=== PATIENT | female | born 1970 | race Caucasian/White ===

== ENCOUNTER 2020-08-13 11:53 | Emergency (ER) | payer BC ==
[2020-08-13] MEDS ORDERED: Aspirin 81 MG Tab.Chew PO ONE (12:01)
[2020-08-13] MEDS ORDERED: Sodium Chloride 0.9% 10 ML Syringe FLUSH PRN (12:06)
--- NOTE | 2020-08-13 12:49 | EDM.PDOC ---
ED HPI GENERAL MEDICAL PROBLEM - General Stated Complaint: CHEST PAIN Time Seen by Provider: 08/13/20 12:07 Source of Information: Reports: Patient, Significant Other History Limitations: Reports: No Limitations - History of Present Illness INITIAL COMMENTS - FREE TEXT/NARRATIVE: Patient presents with pain in left upper chest to clavicle. It is better the last 30 minutes but started at 1030 this morning. She also had some pain up to her neck and in left arm but that is gone now. She says she has had these, or similar, waxing and waning symptoms for the last 3 weeks, since a week after her Covid vaccine on 07/13/20. The pain has never completely gone away. Ten days ago it was really bad for 3-4 hours and she thought she might pass out. Today is the second time it has gotten bad but not quite as bad as before, at 5-6/10. She rates it 2/10 currently. Today she also checked her blood pressure and saw it was low at 101/?. Chest Pain Score (Numeric/FACES): 4 - Related Data Allergies Allergy/AdvReac Type Severity Reaction Status Date / Time hydrocodone Allergy Anaphylactic Verified 08/13/20 12:24 Shock Home Meds: Home Meds . [No Known Home Meds] 08/13/20 [History] ED ROS GENERAL - Review of Systems Review Of Systems: See Below Constitutional: Reports: Malaise. Denies: Fever, Chills, Weakness HEENT: Reports: Throat Pain (sometimes feels like indigestion). Denies: Ear Pain, Vision Change Respiratory: Denies: Shortness of Breath, Cough Cardiovascular: Reports: Chest Pain. Denies: Lightheadedness, Syncope GI/Abdominal: Denies: Abdominal Pain, Diarrhea, Nausea, Vomiting : Denies: Dysuria, Flank Pain Musculoskeletal: Reports: Neck Pain (some but not now), Shoulder Pain, Arm Pain (not now). Denies: Back Pain Skin: Reports: Diaphoresis (briefly this morning). Denies: Cyanosis, Jaundice, Mottled, Pallor Neurological: Denies: Confusion, Dizziness, Headache, Seizure, Syncope, Trouble Speaking, Difficulty Walking Psychiatric: Denies: Agitation, Confusion ED EXAM, GENERAL - Physical Exam Exam: See Below Exam Limited By: No Limitations General Appearance: Alert, WD/WN, No Apparent Distress Eye Exam: Bilateral Eye: EOMI, Normal Inspection, PERRL Ears: Normal External Exam, Hearing Grossly Normal Nose: Normal Inspection, No Blood Throat/Mouth: Normal Lips, Normal Voice, No Airway Compromise Head: Atraumatic, Normocephalic Neck: Normal Inspection, Supple, Full Range of Motion, Other (tender to palpation in a very small discreet area just above the medial left clavicle). No: Lymphadenopathy (L), Lymphadenopathy (R) Respiratory/Chest: No Respiratory Distress, Lungs Clear, Normal Breath Sounds, No Accessory Muscle Use, Other (Palpation just below the medial left clavicle is tender and reproduces some of the pain she has been having for 3 weeks.) Cardiovascular: Normal Peripheral Pulses, Regular Rate, Rhythm, No Edema, No Gallop, No JVD, No Murmur GI/Abdominal: Soft, No Distention Back Exam: Normal Inspection, Full Range of Motion Extremities: Normal Inspection, Normal Range of Motion. No: Pedal Edema, Bob's Sign, Leg Pain (non-tender to palpation, no swelling of calves) Neurological: Alert, Oriented, Normal Cognition, No Motor/Sensory Deficits Psychiatric: Normal Affect, Normal Mood Skin Exam: Warm, Dry, Intact, Normal Color, No Rash Course - Vital Signs Last Recorded V/S: Last Vital Signs Temp 98.0 F 08/13/20 12:10 Pulse 58 L 08/13/20 17:30 Resp 14 08/13/20 17:30 BP 100/66 08/13/20 17:30 Pulse Ox 98 08/13/20 17:30 - Orders/Labs/Meds Orders: Active Orders 24 hr Category Date Time Status EKG Documentation Completion [RC] ASDIRECTED Care 08/13/20 12:02 Active Peripheral IV Care [RC] . DIRECTED Care 08/13/20 12:07 Active Sodium Chloride 0.9% [Saline Flush] Med 08/13/20 12:06 Active 10 ml FLUSH Q8HR PRN Peripheral IV Insertion Adult [OM.PC] Routine Oth 08/13/20 12:06 Ordered EKG 12 Lead [EK] Stat Ther 08/13/20 12:01 Ordered Medication Orders Sodium Chloride (Sodium Chloride 0.9% 10 Ml Syringe) 10 ml FLUSH Q8HR PRN PRN Reason: keep vein open Labs: Laboratory Tests 04/09/2808/13/20 08/13/20 Range/Units 12:50 12:50 16:18 WBC 5.31 (5.00-10.00) 10^3/uL RBC 4.75 (3.80-5.50) 10^6/uL Hgb 13.8 (12.0-16.0) g/dL Hct 41.8 (37.0-47.0) % MCV 88.0 (82.0-92.0) fL MCH 29.1 (27.0-31.0) pg MCHC 33.0 (32.0-36.0) g/dL RDW 13.9 (11.5-14.5) % Plt Count 259 (150-400) 10^3/uL MPV 9.6 (7.4-10.4) fL Immature Gran % (Auto) 0.2 (0.0-5.0) % Neut % (Auto) 65.5 (50.0-70.0) % Lymph % (Auto) 24.5 (20.0-40.0) % [place] % (Auto) 6.4 (2.0-8.0) % Eos % (Auto) 3.0 (1.0-3.0) % Baso % (Auto) 0.4 (0.0-1.0) % Neut # (Auto) 3.48 (2.50-7.00) 10^3/uL Lymph # (Auto) 1.30 (1.00-4.00) 10^3/uL [place] # (Auto) 0.34 (0.10-0.80) 10^3/uL Eos # (Auto) 0.16 (0.10-0.30) 10^3/uL Baso # (Auto) 0.02 (0.00-0.10) 10^3/uL Immature Gran # (Auto) 0.01 (0.00-0.50) 10^3/uL D-Dimer, Quantitative < 100 (<400) ng/mL Sodium 144 (136-145) mmol/L Potassium 3.8 (3.5-5.1) mmol/L Chloride 106 (98-107) mmol/L Carbon Dioxide 26.1 (21.0-32.0) mmol/L Anion Gap 15.7 H (5-15) mmol/L BUN 18 (7-18) mg/dL Creatinine 0.76 (0.51-1.17) mg/dL Est Cr Clr Drug Dosing 79.02 mL/min Estimated GFR (MDRD) > 60 mL/min Glucose 92 (70-140) mg/dL Calcium 8.9 (8.7-10.3) mg/dL Total Bilirubin 0.5 (0.2-1.0) mg/dL AST 13 L (15-37) U/L ALT 19 (14-63) U/L Alkaline Phosphatase 60 (46-116) U/L POC Troponin I (0.00-0.08) ng/mL Troponin I < 0.017 (0.000-0.056) ng/mL Total Protein 7.2 (6.4-8.2) g/dL Albumin 3.93 (3.40-5.00) g/dL 08/13/20 Range/Units 16:18 WBC (5.00-10.00) 10^3/uL RBC (3.80-5.50) 10^6/uL Hgb (12.0-16.0) g/dL Hct (37.0-47.0) % MCV (82.0-92.0) fL MCH (27.0-31.0) pg MCHC (32.0-36.0) g/dL RDW (11.5-14.5) % Plt Count (150-400) 10^3/uL MPV (7.4-10.4) fL Immature Gran % (Auto) (0.0-5.0) % Neut % (Auto) (50.0-70.0) % Lymph % (Auto) (20.0-40.0) % [place] % (Auto) (2.0-8.0) % Eos % (Auto) (1.0-3.0) % Baso % (Auto) (0.0-1.0) % Neut # (Auto) (2.50-7.00) 10^3/uL Lymph # (Auto) (1.00-4.00) 10^3/uL [place] # (Auto) (0.10-0.80) 10^3/uL Eos # (Auto) (0.10-0.30) 10^3/uL Baso # (Auto) (0.00-0.10) 10^3/uL Immature Gran # (Auto) (0.00-0.50) 10^3/uL D-Dimer, Quantitative (<400) ng/mL Sodium (136-145) mmol/L Potassium (3.5-5.1) mmol/L Chloride (98-107) mmol/L Carbon Dioxide (21.0-32.0) mmol/L Anion Gap (5-15) mmol/L BUN (7-18) mg/dL Creatinine (0.51-1.17) mg/dL Est Cr Clr Drug Dosing mL/min Estimated GFR (MDRD) mL/min Glucose (70-140) mg/dL Calcium (8.7-10.3) mg/dL Total Bilirubin (0.2-1.0) mg/dL AST (15-37) U/L ALT (14-63) U/L Alkaline Phosphatase (46-116) U/L POC Troponin I 0.01 (0.00-0.08) ng/mL Troponin I (0.000-0.056) ng/mL Total Protein (6.4-8.2) g/dL Albumin (3.40-5.00) g/dL Meds: Medications Generic Name Dose Route Start Last Admin Trade Name Freq PRN Reason Stop Dose Admin Sodium Chloride 10 ml 08/13/20 12:06 Sodium Chloride 0.9% 10 Ml Syringe FLUSH Q8HR PRN keep vein open Discontinued Medications Generic Name Dose Route Start Last Admin Trade Name Freq PRN Reason Stop Dose Admin Aspirin 324 mg 08/13/20 12:01 08/13/20 12:15 Aspirin 81 Mg Tab.Chew PO 08/13/20 12:02 324 mg ONETIME ONE Administration Al Hydroxide/Mg Hydroxide 30 0 ml 08/13/20 13:55 08/13/20 14:05 ml/ Lidocaine HCl 15 ml PO 08/13/20 13:56 15 ml ONETIME ONE Administration Sodium Chloride Confirm 08/13/20 12:33 08/13/20 13:10 Normal Saline Administered 08/13/20 12:34 Not Given Dose 1,000 mls @ as directed .ROUTE .STK-MED ONE Sodium Chloride 1,000 mls @ 999 mls/hr 08/13/20 13:07 08/13/20 13:09 Normal Saline IV 08/13/20 14:07 999 mls/hr .BOLUS ONE Administration Lorazepam 1 mg 08/13/20 16:18 08/13/20 17:01 Lorazepam 2 Mg/Ml Sdv IVPUSH 08/13/20 16:19 1 mg ONETIME ONE Administration Nitroglycerin 0.4 mg 08/13/20 13:07 08/13/20 13:12 Nitroglycerin 0.4 Mg Tab.Sl SL 08/13/20 13:08 0.4 mg ONETIME ONE Administration Nitroglycerin 0.4 mg 08/13/20 13:43 08/13/20 13:44 Nitroglycerin 0.4 Mg Tab.Sl SL 08/13/20 13:44 0.4 mg ONETIME ONE Administration - Re-Assessments/Exams Free Text/Narrative Re-Assessment/Exam: 08/13/20 13:45 After my exam her pain was 2/10. It went up to 5-6 again when she got up to the bathroom. She took the nitro afterward and pain has now been steady at 4/10 for several minutes. Will try another nitro now. 08/13/20 14:58 Second nitro didn't benefit. Tried a GI cocktail and now pain is worse again; up to left trapezius and left medial neck as well as left anterior chest. She says she remembers feeling like this once with pneumonia. No cough recently and lungs sounds clear today but will get CXR to ruleout. Troponin is negative. We also discussed any chance of anxiety etiology but she doesn't think so and did have anxiety that after her second childbirth. No anxiety recently that she is aware of. 08/13/20 16:20 CXR is negative. She had another painful episode for a couple minutes. I discussed with her that I don't know what is causing it. I consulted Krishanmerraymundo and we discussed case face to face. Dr. Moreno doesn't know what it might be either but suggested repeating troponin at the 3 hr interval along with a D- dimer although not consistent with DVT. He also advised Ativan 1 mg IV to see if it helps while the labs are running. Patient is agreeable with this. 08/13/20 17:49 D-dimer is good but troponin is delayed due to lab problems. I informed patient of the delay and she is fine with it. The Lorazepam definitely calmed her and made her tired she says. The pain is less but not completely gone. 08/13/20 19:42 Second troponin is negative. Discussed findings with patient and her . Pain is mild now. She doesn't want a Rx for lorazepam. She is discharged to home in stable condition. Departure - Departure Time of Disposition: 19:36 Disposition: Home, Self-Care 01 Reason for Transfer *Q: Other Condition: Good Clinical Impression: Chest pain Qualifiers: Chest pain type: unspecified Qualified Code(s): R07.9 - Chest pain, unspecified Referrals: Emerald Ross MD [Primary Care Provider] - Additional Instructions: Follow up with your PCP to recheck this and discuss a stress test. Also reschedule the neck ultrasound that you missed today while in ER. Return to ER as needed. Sepsis Event Note (ED) - Evaluation Sepsis Screening Result: No Definite Risk - Focused Exam Vital Signs: Vital Signs Temp Pulse Pulse Resp BP BP Pulse Ox 08/13/20 17:30 58 L 14 100/66 98 08/13/20 17:00 59 L 14 104/72 98 08/13/20 16:30 69 13 117/72 98 08/13/20 16:00 66 17 126/77 99 08/13/20 15:30 60 15 112/66 99 08/13/20 15:00 63 18 113/62 98 08/13/20 14:30 67 18 108/68 97 08/13/20 13:44 113/64 08/13/20 13:12 112/73 08/13/20 12:10 98.0 F 70 14 130/78 100 - My Orders Last 24 Hours: My Active Orders 08/13/20 12:01 EKG 12 Lead [EK] Stat 08/13/20 12:02 EKG Documentation Completion [RC] ASDIRECTED 08/13/20 12:06 Sodium Chloride 0.9% [Saline Flush] 10 ml FLUSH Q8HR PRN Peripheral IV Insertion Adult [OM.PC] Routine 08/13/20 12:07 Peripheral IV Care [RC] . DIRECTED - Assessment/Plan Last 24 Hours: My Active Orders 08/13/20 12:01 EKG 12 Lead [EK] Stat 08/13/20 12:02 EKG Documentation Completion [RC] ASDIRECTED 08/13/20 12:06 Sodium Chloride 0.9% [Saline Flush] 10 ml FLUSH Q8HR PRN Peripheral IV Insertion Adult [OM.PC] Routine 08/13/20 12:07 Peripheral IV Care [RC] . DIRECTED
[2020-08-13] MEDS: Sodium Chloride 0.9% 1,000 ML ONE ×2 (13:03→13:10)
[2020-08-13] MEDS ORDERED: Sodium Chloride 0.9% 1,000 ML IV ONE (13:07)
[2020-08-13] MEDS ORDERED: Nitroglycerin 0.4 MG Tab.SL SL ONE ×2 (13:07→13:43)
[2020-08-13 13:21] LABS: ANION GAP 15.7 mmol/L (5-15); CHLORIDE,CL 106 mmol/L (98-107); SODIUM,NA 144 mmol/L (136-145)
[2020-08-13] MEDS ORDERED: Alum Hydrox/Mag Hydrox/Simeth 30 ML, Lidocaine 2% 15 ML PO ONE ×2 (13:55)
--- NOTE | 2020-08-13 15:20 | CR ---
[id number] RAD/RAD Chest PA And Lateral EXAM: RAD Chest PA And Lateral INDICATION: CHEST PAIN. COMPARISON: None. DISCUSSION: Cardiomediastinal silhouette is normal in size and contour. No infiltrate, effusion, pneumothorax, or edema. IMPRESSION: No acute cardiopulmonary abnormality. Cain Glynn DO 08/13/20 [id number] Thank you for allowing us to participate in the care of your patient.
[2020-08-13] MEDS ORDERED: LORazepam 2 MG/ML SDV IVPUSH ONE (16:18)
== END 2020-08-13 20:05 | disposition home or self-care (01) ==
LOC: KA.ED 11:53
DX: R07.9 Chest pain, unspecified (principal); Z88.5 Allergy status to narcotic agent
CPT/HCPCS: 36415; 71046; 80053; 84484; 85025; 85379; 93005; 96374; 99283; 99285-25; A9270-GY; J2060; J7030; Q3014

== ENCOUNTER 2022-09-06 11:07 | Emergency (ER) | payer BC | END 2022-09-06 11:45 | disposition home or self-care (01) | LOC: KA.ED 11:07 | DX: H10.023 Other mucopurulent conjunctivitis, bilateral (principal); Z88.5 Allergy status to narcotic agent; Z91.040 Latex allergy status | CPT/HCPCS: 99282; 99283 ==